=== PATIENT | female | born 1960 | race Hispanic/Latino ===

== ENCOUNTER 2018-11-28 13:20 | Outpatient (CLI) | payer MEDICARE, MEDICAID ==
--- NOTE | 2018-12-03 13:23 | MMO ---
Bilateral MAMMO Bilat Screen [facility]. CLINICAL HISTORY: Patient is 58 years old and is seen for screening. The patient has no family history of breast cancer. The patient has no personal history of cancer. VIEWS: The views performed were: bilateral craniocaudal with tomosynthesis and bilateral mediolateral oblique with tomosynthesis. MAMMOGRAM FINDINGS: There are scattered fibroglandular densities. There are vascular calcifications seen in both breasts. There are no suspicious masses, calcifications or areas of architectural distortion. IMPRESSION: THERE IS NO MAMMOGRAPHIC EVIDENCE OF MALIGNANCY. A ROUTINE FOLLOW-UP MAMMOGRAM IN 1 YEAR IS RECOMMENDED. THE RESULTS OF THIS EXAM WERE SENT TO THE PATIENT. ACR BI-RADS Category 2 - Benign finding MAMMOGRAPHY NOTE: 1. A negative mammogram report should not delay a biopsy if a dominant of clinically suspicious mass is present. 2. Approximately 10% to 15% of breast cancers are not detected by mammography. 3. Adenosis and dense breasts may obscure an underlying neoplasm.
== END 2018-11-28 13:21 | disposition home or self-care (01) ==
LOC: BICMAMMO 13:20
PROVIDERS: ATTEND Family Medicine
DX: Z12.31 Encounter for screening mammogram for malignant neoplasm of breast (principal)
CPT/HCPCS: 77063; 77067

== ENCOUNTER 2018-12-20 11:29 | Day surgery (SDC) | payer MEDICARE, MEDICAID ==
[2018-12-19 12:51] VITALS: BMI 47.5
[2018-12-20] MEDS ORDERED: PROPOFOL 200 MG/20 ML VIAL ONE (16:02)
[2018-12-20] MEDS ORDERED: Lidocaine 1% PF 5 ML VIAL ONE (16:02)
--- NOTE | 2018-12-20 22:08 | OP ---
DATE OF PROCEDURE: 12/20/2018 PROCEDURE PERFORMED: Colonoscopy. PRE PROCEDURE DIAGNOSIS: 1. History of polyps, last colonoscopy 2005. POSTPROCEDURE DIAGNOSES: 1. Exam to cecum; good bowel preparation. 2. Mild sigmoid diverticulosis. 3. Medium-sized internal hemorrhoids, not actively bleeding. 4. Otherwise normal colonoscopy; no polyp seen. PROCEDURE: Written informed consent was obtained. The patient was brought to the endoscopy suite. Total intravenous anesthesia was provided by Monica Allen CRNA. The patient was placed in the left lateral decubitus position. A digital rectal exam was performed that revealed a small perianal tag. A Pentax video colonoscope was inserted through the anal canal and advanced under direct visualization to the cecum. Position in the cecum was verified by clear identification of the appendiceal orifice and the ileocecal valve. The quality of the bowel preparation was good. Each colon segment was examined carefully as the colonoscope was slowly withdrawn from the cecum. Vascular pattern and haustral folds appeared normal. Occasional diverticular orifices, small in size, were identified in the sigmoid colon. No polyps were identified. In the rectum, a retroflexed view demonstrated medium-sized internal hemorrhoids that were not actively bleeding. The colon was decompressed as the colonoscope was removed from the patient. She was transferred to the Day Stay surgery area for postprocedure monitoring. There were no immediate complications. RECOMMENDATIONS: 1. High-fiber, low-fat diet. 2. Resume previous medications and diet. 3. Will associate counsel patient on importance of high-fiber diet. 4. Repeat colonoscopy in 5 years. 5. Follow up with GI as needed. Job ID: [id number]
== END 2018-12-20 16:00 | disposition home or self-care (01) ==
LOC: SDC 11:29
PROVIDERS: ATTEND Internal Medicine Gastroenterology
PROC: 0DJD8ZZ Inspection of Lower Intestinal Tract, Via Natural or Artificial Opening Endoscopic (ICD-10-PCS; principal; 2018-12-20)
DX: Z12.11 Encounter for screening for malignant neoplasm of colon (principal); K57.30 Diverticulosis of large intestine without perforation or abscess without bleeding; K64.8 Other hemorrhoids; K21.9 Gastro-esophageal reflux disease without esophagitis; Z86.010 Personal history of colon polyps; Z79.4 Long term (current) use of insulin; Z79.899 Other long term (current) drug therapy; Z88.5 Allergy status to narcotic agent; Z91.041 Radiographic dye allergy status; Z95.5 Presence of coronary angioplasty implant and graft
CPT/HCPCS: 36416; J2001; J2704

== ENCOUNTER 2019-08-29 12:20 | Day surgery (SDC) | payer MEDICARE, MEDICAID ==
[2019-08-28 10:14] VITALS: BMI 48.4
[2019-08-29] MEDS ORDERED: Succinylcholine Chloride 20 MG/ML 10 ml SYRINGE FS ONE (14:20)
[2019-08-29] MEDS ORDERED: PROPOFOL 200 MG/20 ML VIAL ONE (14:20)
[2019-08-29] MEDS ORDERED: EPINEPHrine 1 MG/10 ML Abboject SYRINGE ONE (14:20)
--- NOTE | 2019-08-29 16:59 | OP ---
DATE OF PROCEDURE: 08/29/2019 PRIMARY CARE PHYSICIAN: Debbie Beckwith MD at [facility]. PROCEDURE PERFORMED: Esophagogastroduodenoscopy with biopsy. PREPROCEDURE DIAGNOSES: 1. Recurrent nausea and vomiting. 2. Epigastric pain. 3. Long history of diabetes dating back 20 years. POSTPROCEDURE DIAGNOSES: 1. Exam to second portion of duodenum. 2. Normal esophagus. 3. Mild pre-pyloric erythema and edema, suggestive of possible early gastritis, biopsied. 4. No gastric or duodenal ulcer identified. 5. Grossly normal-appearing duodenum, biopsied to evaluate for histological changes. DESCRIPTION OF PROCEDURE: Written informed consent was obtained. The patient was brought to the endoscopy suite. Total intravenous anesthesia was administered by Dr. Brandan Horton. The patient was placed in the left lateral decubitus position. A bite block was inserted into the mouth. A Pentax video diagnostic gastroscope was introduced into the oral cavity, and the esophagus was carefully intubated. The gastroscope was advanced under direct visualization to the mid body of the stomach. At this point, the patient experienced some respiratory compromise with oxygen desaturation due to the anesthetic. It was promptly decided that the endoscopy should be halted and the patient be intubated to protect her airway and prevent complications. Intubation was carried out smoothly, and the exam was continued. Examination of the entire stomach revealed mild pre-pyloric edema and erythema suggestive of possible mild or early gastritis. Biopsies were obtained for histology. No ulcer or gastric outlet obstruction was identified. The duodenum from the bulb to the second portion appeared grossly normal with good motility. Biopsies were obtained for histology. No ulcer was identified either in the duodenum or the stomach. The stomach was decompressed as the endoscope was removed from the patient. She was extubated after the procedure without difficulty. She was transferred to the Day Stay surgery area for postprocedure monitoring. RECOMMENDATIONS: 1. Await biopsy results. 2. Ask the patient to call me in 1 week for biopsy results. 3. Obtain gastric emptying study in Nuclear Medicine. 4. Follow up in [facility] in about 3 to 4 weeks. Job ID: [id number]
== END 2019-08-29 17:30 | disposition home or self-care (01) ==
LOC: SDC 12:20
PROVIDERS: ATTEND Internal Medicine Gastroenterology
PROC: 0DB78ZX Excision of Stomach, Pylorus, Via Natural or Artificial Opening Endoscopic, Diagnostic (ICD-10-PCS; principal; 2019-08-29)
PROC: 0DB88ZX Excision of Small Intestine, Via Natural or Artificial Opening Endoscopic, Diagnostic (ICD-10-PCS; 2019-08-29)
DX: K21.9 Gastro-esophageal reflux disease without esophagitis (principal); K29.50 Unspecified chronic gastritis without bleeding; E11.9 Type 2 diabetes mellitus without complications; Z79.4 Long term (current) use of insulin; Z88.5 Allergy status to narcotic agent; Z91.041 Radiographic dye allergy status
CPT/HCPCS: 36416; 88305; 88312; J0171; J2704

== ENCOUNTER 2020-08-17 15:12 | Outpatient (CLI) | payer MEDICARE, OTHER ==
--- NOTE | 2020-08-17 16:02 | ULT ---
RENAL ULTRASOUND: History: Chronic renal failure. FINDINGS: Real-time imaging of the right and left kidneys were performed. The right kidney measures 11.7 and th e left kidney 11.6 cm in size. No cyst, mass or obstruction. Bladder was not distended at the time of this exam. IMPRESSION: Unremarkable renal ultrasound. POS: [facility]
== END 2020-08-17 15:13 | disposition home or self-care (01) ==
LOC: BICULT 15:12
PROVIDERS: ATTEND Internal Medicine Nephrology
DX: N18.30 Chronic kidney disease, stage 3 unspecified (principal)
CPT/HCPCS: 76770

== ENCOUNTER 2020-10-14 12:24 | Outpatient (CLI) | payer MEDICARE, OTHER | END 2020-10-14 12:25 | disposition home or self-care (01) | LOC: DTY/OP 12:24 | PROVIDERS: ATTEND Surgery | DX: E78.5 Hyperlipidemia, unspecified (principal); I10 Essential (primary) hypertension; E11.9 Type 2 diabetes mellitus without complications | CPT/HCPCS: 97802 ==